=== PATIENT | male | born 1940 | race Caucasian/White ===

== ENCOUNTER 2016-06-18 00:37 | Observation (INO) | payer MEDICARE, OTHER ==
[2016-06-18] VITALS (8 sets, daily range): BP systolic 112–140; BP diastolic 59–78; PULSE 53–90; TEMP 97.6–97.8
[~2016-06-18] VITALS: Ht 182.9 cm; Wt 80.0 kg
[~2016-06-18 00:37] MED LIST: ASPIRIN 32325 MG/TAB PO; CIPRO 500MG TA500 MG PO; LOPRESSOR 225 MG/TAB PO; NITROSTAT0.4 MG/TAB SL; NO HOME MEDICATIONS; PERCOCET 325 MG1 TA2 PO; PLAVIX 75MG TAB75 MG PO; PRINIVIL2.5 MG PO; PYRIDIUM200 M1 PO; TOPROL XL 25MG25 MG PO; ZESTRIL2.5 MG PO; ZOCOR 40MG40 MG PO; ZOVIRAX800 MG PO
[2016-06-18 01:06] LABS: BASO # 0.1 (0.0-0.2); BASO % 0.9 % (0.0-2.0); EOS # 0.5 (0.0-0.7); GRAN # 3.5 (1.4-6.5); GRAN % 51.5 % (42.2-75.2); LYMPH # 2.1 (1.2-3.4); LYMPH % 30.9 % (20.0-51.0); MEAN CELL VOLUME 88 fl (80.0-100.0); MEAN CORPUSCULAR HEMOGLOBIN 31 pg (27.0-31.0); MEAN CORPUSCULAR HGB CONC 36 g/dl (33.0-37.0); MONO # 0.6 (0.1-0.6); MONO % 9.4 % (1.7-9.3); PLATELET COUNT 190 K/mm3 (130-400); RED BLOOD COUNT 3.83 M/mm3 (4.20-5.60); REDCELL DISTRIBUTION WIDTH-CV 12.5 % (11.5-14.5); WHITE BLOOD COUNT 6.7 K/mm3 (4.8-10.8)
[2016-06-18 01:18] LABS: ADJUSTED CALCIUM 9.3 mg/dL (8.4-10.2); ALANINE AMINOTRANSFERASE 17 U/L (21-72); ALBUMIN 3.8 gm/dL (3.5-5.0); ALKALINE PHOSPHATASE 66 U/L (50-136); ANION GAP 11 mmol/L (7-16); BILIRUBIN,TOTAL 0.7 mg/dL (0.0-1.0); BLOOD UREA NITROGEN 15 mg/dL (9-20); CALCIUM 9.1 mg/dL (8.4-10.2); CARBON DIOXIDE 26 mmol/L (22-30); CHLORIDE 103 mmol/L (98-107); CREATININE, serum 1.23 mg/dL (0.66-1.25); GLUCOSE 100 mg/dL (74-106); POTASSIUM 3.9 mmol/L (3.4-5.0); SODIUM 139 mmol/L (137-145); TOTAL PROTEIN 6.6 gm/dL (6.4-8.2)
[2016-06-18] MEDS ORDERED: FLOMAX 0.40.4 MG/CAP PO (01:20)
[2016-06-18] MEDS ORDERED: NORVASC 5MG5 MG/TAB PO (01:21)
[2016-06-18 01:23] LABS: HEMATOCRIT 33.8 % (42.0-52.0)
[2016-06-18] MEDS ORDERED: PROSCAR 5MG5 MG PO (01:23)
[2016-06-18 01:29] LABS: B-TYPE NATRIURETIC PEPTIDE 66 pg/mL (0-450)
[2016-06-18 01:31] LABS: TROPONIN-I < 0.012 ng/mL (0.000-0.034)
[2016-06-18] MEDS ORDERED: LOPRESSOR 225 MG/TAB PO (07:25)
== END 2016-06-18 17:55 | disposition home or self-care (01) ==
LOC: COL.ER 00:37 → PEDS 02:10
PROVIDERS: Emergency Medicine
DX: R07.9 Chest pain, unspecified (principal); I25.10 Atherosclerotic heart disease of native coronary artery without angina pectoris; E78.5 Hyperlipidemia, unspecified; I44.60 Unspecified fascicular block; I08.0 Rheumatic disorders of both mitral and aortic valves; I10 Essential (primary) hypertension; N40.0 Benign prostatic hyperplasia without lower urinary tract symptoms; Z66 Do not resuscitate; Z95.5 Presence of coronary angioplasty implant and graft; Z79.01 Long term (current) use of anticoagulants
CPT/HCPCS: 99239; A9502; G0378; J1650; J2785; J7030

== ENCOUNTER 2016-07-17 16:26 | Emergency (ER) | payer MEDICARE, OTHER ==
[~2016-07-17] VITALS: Ht 182.9 cm; Wt 79.1 kg
[~2016-07-17 16:26] MED LIST changes: +FLOMAX 0.40.4 MG/CAP PO; +NORVASC 5MG5 MG/TAB PO; +PROSCAR 5MG5 MG PO
[2016-07-17 16:34] VITALS: TEMP 98.1
[2016-07-17 17:05] LABS: BASO % 0.5 % (0.0-2.0); EOS # 0.3 (0.0-0.7); EOS % 4.2 % (0-4.0); GRAN # 4.4 (1.4-6.5); GRAN % 57.9 % (42.2-75.2); HEMOGLOBIN 12.2 g/dl (13.5-18.0); LYMPH # 2.2 (1.2-3.4); LYMPH % 28.9 % (20.0-51.0); MEAN CELL VOLUME 89 fl (80.0-100.0); MEAN CORPUSCULAR HEMOGLOBIN 31 pg (27.0-31.0); MEAN CORPUSCULAR HGB CONC 35 g/dl (33.0-37.0); MEAN PLATELET VOLUME 9.3 fl (7.4-10.4); MONO # 0.6 (0.1-0.6); MONO % 8.2 % (1.7-9.3); PLATELET COUNT 200 K/mm3 (130-400); RED BLOOD COUNT 3.89 M/mm3 (4.20-5.60); REDCELL DISTRIBUTION WIDTH-CV 12.5 % (11.5-14.5); WHITE BLOOD COUNT 7.6 K/mm3 (4.8-10.8)
[2016-07-17 17:06] LABS: HEMATOCRIT 34.7 % (42.0-52.0)
[2016-07-17 17:08] LABS: ADJUSTED CALCIUM 8.6 mg/dL (8.4-10.2); ALANINE AMINOTRANSFERASE 20 U/L (21-72); ALKALINE PHOSPHATASE 67 U/L (50-136); ANION GAP 12 mmol/L (7-16); BILIRUBIN,TOTAL 0.8 mg/dL (0.0-1.0); BLOOD UREA NITROGEN 19 mg/dL (9-20); CALCIUM 8.6 mg/dL (8.4-10.2); CARBON DIOXIDE 21 mmol/L (22-30); CHLORIDE 104 mmol/L (98-107); CREATININE, serum 1.25 mg/dL (0.66-1.25); GLUCOSE 91 mg/dL (74-106); LIPASE 98 U/L (23-300); POTASSIUM 4.2 mmol/L (3.4-5.0); SODIUM 137 mmol/L (137-145)
[2016-07-17 17:20] LABS: B-TYPE NATRIURETIC PEPTIDE 124 pg/mL (0-450)
[2016-07-17 17:21] LABS: TROPONIN-I < 0.012 ng/mL (0.000-0.034)
[2016-07-17] MEDS ORDERED: ULTRAM 50MG TAB50 MG PO (17:42)
[2016-07-17 19:30] VITALS: BP 138/73; PULSE 59
== END 2016-07-17 19:49 | disposition home or self-care (01) ==
LOC: COL.ER 16:26
PROVIDERS: Emergency Medicine
DX: R07.9 Chest pain, unspecified (principal); R00.2 Palpitations; I25.10 Atherosclerotic heart disease of native coronary artery without angina pectoris; I10 Essential (primary) hypertension; M54.6 Pain in thoracic spine
CPT/HCPCS: J1170; J2270

== ENCOUNTER 2018-02-12 08:48 | Emergency (ER) | payer MEDICARE, OTHER ==
[~2018-02-12] VITALS: Ht 182.9 cm; Wt 76.8 kg
[~2018-02-12 08:48] MED LIST changes: +ULTRAM 50MG TAB50 MG PO
[2018-02-12 08:53] VITALS: TEMP 97.3
[2018-02-12 09:37] LABS: BASO % 0.6 % (0.0-2.0); EOS # 0.3 (0.0-0.7); EOS % 4.8 % (0-4.0); GRAN # 3.5 (1.4-6.5); GRAN % 55.3 % (42.2-75.2); HEMATOCRIT 36.9 % (42.0-52.0); HEMOGLOBIN 12.8 g/dl (13.5-18.0); LYMPH # 1.8 (1.2-3.4); LYMPH % 28.1 % (20.0-51.0); MEAN CELL VOLUME 92 fl (80.0-100.0); MEAN CORPUSCULAR HEMOGLOBIN 32 pg (27.0-31.0); MEAN CORPUSCULAR HGB CONC 35 g/dl (33.0-37.0); MEAN PLATELET VOLUME 8.9 fl (7.4-10.4); MONO # 0.7 (0.1-0.6); MONO % 10.9 % (1.7-9.3); PLATELET COUNT 207 K/mm3 (130-400); RED BLOOD COUNT 4.03 M/mm3 (4.20-5.60); REDCELL DISTRIBUTION WIDTH-CV 12.8 % (11.5-14.5)
[2018-02-12 09:46] LABS: ALANINE AMINOTRANSFERASE 14 U/L (21-72); ALBUMIN 3.9 gm/dL (3.5-5.0); ALKALINE PHOSPHATASE 60 U/L (50-136); ANION GAP 3 mmol/L (7-16); AST,SGOT 29 U/L (15-37); BILIRUBIN,TOTAL 0.5 mg/dL (0.0-1.0); BLOOD UREA NITROGEN 18 mg/dL (9-20); CALCIUM 8.8 mg/dL (8.4-10.2); CARBON DIOXIDE 28 mmol/L (22-30); CHLORIDE 107 mmol/L (98-107); CREATININE, serum 1.11 mg/dL (0.66-1.25); GLUCOSE 95 mg/dL (74-106); POTASSIUM 4.6 mmol/L (3.4-5.0); SODIUM 139 mmol/L (137-145); TOTAL PROTEIN 6.9 gm/dL (6.4-8.2)
[2018-02-12 09:57] LABS: TROPONIN-I < 0.012 ng/mL (0.000-0.034)
[2018-02-12] MEDS ORDERED: ANTIVERT 25MG25 MG PO ×2 (10:48)
[2018-02-12 10:54] VITALS: BP 168/88; PULSE 55
== END 2018-02-12 11:01 | disposition home or self-care (01) ==
LOC: COL.ER 08:48
PROVIDERS: Nurse Practitioner Primary Care
DX: R42 Dizziness and giddiness (principal); I25.10 Atherosclerotic heart disease of native coronary artery without angina pectoris; K21.9 Gastro-esophageal reflux disease without esophagitis; Z79.82 Long term (current) use of aspirin; Z79.02 Long term (current) use of antithrombotics/antiplatelets; Z95.5 Presence of coronary angioplasty implant and graft; Z86.73 Personal history of transient ischemic attack (TIA), and cerebral infarction without residual deficits

== ENCOUNTER 2019-06-10 15:05 | Emergency (ER) | payer MEDICARE, OTHER ==
[~2019-06-10] VITALS: Ht 180.3 cm; Wt 77.3 kg
[~2019-06-10 15:05] MED LIST changes: +ANTIVERT 25MG25 MG PO
[2019-06-10 15:09] VITALS: TEMP 98.1
[2019-06-10] MEDS ORDERED: NORVASC 5MG5 MG/TAB PO (15:20)
[2019-06-10] MEDS ORDERED: LOPRESSOR 225 MG/TAB PO (15:20)
[2019-06-10] MEDS ORDERED: HCTZ12.5TAB PO (15:20)
[2019-06-10] MEDS ORDERED: FLOMAX 0.40.4 MG/CAP PO (15:21)
[2019-06-10] MEDS ORDERED: LIPITOR 40MG TA40 MG PO (15:21)
[2019-06-10] MEDS ORDERED: PROSCAR 5MG5 MG PO (15:21)
[2019-06-10 15:26] LABS: BASO # 0.1 (0.0-0.2); BASO % 0.8 % (0.0-2.0); EOS # 0.3 (0.0-0.7); EOS % 3.6 % (0-4.0); GRAN # 5.2 (1.4-6.5); GRAN % 57.5 % (42.2-75.2); HEMOGLOBIN 12.7 g/dl (13.5-18.0); LYMPH # 2.7 (1.2-3.4); LYMPH % 29.2 % (20.0-51.0); MEAN CELL VOLUME 92 fl (80.0-100.0); MEAN CORPUSCULAR HEMOGLOBIN 32 pg (27.0-31.0); MEAN CORPUSCULAR HGB CONC 35 g/dl (33.0-37.0); MONO # 0.8 (0.1-0.6); MONO % 8.7 % (1.7-9.3); PLATELET COUNT 264 K/mm3 (130-400); RED BLOOD COUNT 3.92 M/mm3 (4.20-5.60)
[2019-06-10 15:41] LABS: ALANINE AMINOTRANSFERASE 11 U/L (4-49); ALBUMIN 4.4 gm/dL (3.5-5.0); ALKALINE PHOSPHATASE 69 U/L (50-136); ANION GAP 7 mmol/L (7-16); AST,SGOT 33 U/L (15-37); BILIRUBIN,TOTAL 0.7 mg/dL (0.0-1.0); BLOOD UREA NITROGEN 17 mg/dL (9-20); CALCIUM 9.4 mg/dL (8.4-10.2); CARBON DIOXIDE 29 mmol/L (22-30); CHLORIDE 98 mmol/L (98-107); CREATININE, serum 1.22 (0.66-1.25); GLUCOSE 104 mg/dL (74-106); LIPASE 162 U/L (23-300); POTASSIUM 4.1 mmol/L (3.4-5.0); SODIUM 135 mmol/L (137-145); TOTAL PROTEIN 7.7 gm/dL (6.4-8.2)
[2019-06-10 15:50] LABS: C-REACTIVE PROTEIN < 0.5 mg/dL (0.0-0.9); TROPONIN-I < 0.012 ng/mL (0.000-0.035)
[2019-06-10 18:17] VITALS: BP 151/89; PULSE 68
== END 2019-06-10 18:17 | disposition home or self-care (01) ==
LOC: COL.ER 15:05
PROVIDERS: Emergency Medicine
DX: I44.7 Left bundle-branch block, unspecified (principal); I10 Essential (primary) hypertension; Z95.5 Presence of coronary angioplasty implant and graft; Z79.02 Long term (current) use of antithrombotics/antiplatelets; Z79.82 Long term (current) use of aspirin

== ENCOUNTER 2021-10-10 02:39 | Emergency (ER) | payer MEDICARE, OTHER ==
[~2021-10-10] VITALS: Ht 182.9 cm; Wt 77.3 kg
[~2021-10-10 02:39] MED LIST changes: +HCTZ12.5TAB PO; +LIPITOR 40MG TA40 MG PO
[2021-10-10 03:01] VITALS: TEMP 97.8
[2021-10-10 03:10] LABS: COLLECTION METHOD CLEAN CATCH
[2021-10-10 03:12] LABS: BASO # 0.1 K/mm3 (0.0-0.2); BASO % 0.5 % (0.0-2.0); EOS # 0.3 K/mm3 (0.0-0.7); GRAN # 5.7 K/mm3 (1.4-6.5); GRAN % 61.6 % (42.2-75.2); HEMOGLOBIN 12.2 g/dl (13.5-18.0); LYMPH # 2.2 K/mm3 (1.2-3.4); LYMPH % 23.9 % (20.0-51.0); MEAN CELL VOLUME 87 fl (80.0-100.0); MEAN CORPUSCULAR HEMOGLOBIN 32 pg (27-31); MEAN CORPUSCULAR HGB CONC 37 g/dl (33.0-37.0); MEAN PLATELET VOLUME 8.6 fl (7.4-10.4); MONO % 10.6 % (1.7-9.3); PLATELET COUNT 248 K/mm3 (130-400); RED BLOOD COUNT 3.83 M/mm3 (4.20-5.60); REDCELL DISTRIBUTION WIDTH-CV 12.4 % (11.5-14.5)
[2021-10-10 03:18] LABS: HEMATOCRIT 33.4 % (42.0-52.0)
[2021-10-10 03:21] LABS: PH 8.5 (5.0-8.5); URINE APPEARANCE Cloudy (CLEAR/HAZY); URINE COLOR Red (YELLOW); URINE GLUCOSE TRACE (NEGATIVE); URINE KETONE 1+ (NEGATIVE); URINE PROTEIN(semi-quant) 3+ (NEGATIVE)
[2021-10-10 03:22] LABS: URINE BLOOD 3+ (NEGATIVE); URINE NITRATE Positive (NEGATIVE)
[2021-10-10 03:31] LABS: ALBUMIN 3.7 gm/dL (3.4-4.8); CALCIUM 8.9 mg/dL (8.4-10.2); CREATININE, serum 1.27 mg/dL (0.72-1.25); POTASSIUM 3.7 mmol/L (3.5-4.5); TOTAL PROTEIN 6.7 gm/dL (6.2-8.1)
[2021-10-10 03:34] LABS: SQUAMOUS EPITHELIAL None Seen /hpf (0-10); URINE BACTERIA None Seen /hpf (NONE SEEN); URINE RBC >50 /hpf (0-2)
[2021-10-10 03:39] LABS: BILIRUBIN,TOTAL 0.6 mg/dL (0.2-1.2)
[2021-10-10] MEDS ORDERED: BACTRIM DS 8001 TAB PO (05:27)
[2021-10-10 05:40] VITALS: BP 144/96; PULSE 65
== END 2021-10-10 05:41 | disposition home or self-care (01) ==
LOC: COL.ER 02:39
PROVIDERS: Physician Assistant
DX: N30.91 Cystitis, unspecified with hematuria (principal)
CPT/HCPCS: J0696; Q9967

== ENCOUNTER 2022-03-16 19:53 | Emergency (ER) | payer MEDICARE, OTHER ==
[~2022-03-16 19:53] MED LIST changes: +BACTRIM DS 8001 TAB PO
[2022-03-16 20:19] VITALS: TEMP 98.1
[2022-03-16] MEDS ORDERED: FLEXERIL 1010 MG/TAB PO ×2 (20:42)
[2022-03-16 21:23] LABS: BASO % 0.6 % (0.0-2.0); EOS # 0.3 K/mm3 (0.0-0.7); EOS % 4.9 % (0.0-4.0); GRAN # 4.5 K/mm3 (1.4-6.5); GRAN % 65.2 % (42.2-75.2); HEMOGLOBIN 11.2 g/dl (13.5-18.0); LYMPH # 1.1 K/mm3 (1.2-3.4); LYMPH % 16.1 % (20.0-51.0); MEAN CELL VOLUME 88 fl (80.0-100.0); MEAN CORPUSCULAR HEMOGLOBIN 32 pg (27-31); MEAN CORPUSCULAR HGB CONC 36 g/dl (33.0-37.0); MEAN PLATELET VOLUME 8.8 fl (7.4-10.4); MONO # 0.9 K/mm3 (0.1-0.6); MONO % 12.8 % (1.7-9.3); PLATELET COUNT 244 K/mm3 (130-400); RED BLOOD COUNT 3.53 M/mm3 (4.20-5.60); REDCELL DISTRIBUTION WIDTH-CV 12.7 % (11.5-14.5)
[2022-03-16 21:25] LABS: HEMATOCRIT 31.2 % (42.0-52.0)
[2022-03-16 21:39] LABS: ALBUMIN 3.4 gm/dL (3.4-4.8); BILIRUBIN,TOTAL 0.7 mg/dL (0.2-1.2); CALCIUM 8.7 mg/dL (8.4-10.2); CREATININE, serum 1.22 mg/dL (0.72-1.25); POTASSIUM 3.3 mmol/L (3.5-4.5); TOTAL PROTEIN 6.6 gm/dL (6.2-8.1)
[2022-03-16 21:45] LABS: TROPONIN-I 0.01 ng/mL (0.00-0.033)
[2022-03-16 22:14] VITALS: BP 131/68; PULSE 71
== END 2022-03-16 22:14 | disposition home or self-care (01) ==
LOC: COL.ER 19:53
PROVIDERS: Personal Emergency Response Attendant
DX: J40 Bronchitis, not specified as acute or chronic (principal)

== ENCOUNTER 2022-12-09 08:35 | Emergency (ER) | payer MEDICARE, OTHER ==
[~2022-12-09] VITALS: Ht 182.9 cm; Wt 77.3 kg
[~2022-12-09 08:35] MED LIST changes: +FLEXERIL 1010 MG/TAB PO
[2022-12-09 08:43] VITALS: TEMP 98
[2022-12-09 09:56] LABS: BASO % 0.4 % (0.0-2.0); EOS # 0.1 K/mm3 (0.0-0.7); GRAN # 5.9 K/mm3 (1.4-6.5); GRAN % 71.4 % (42.2-75.2); LYMPH # 1.3 K/mm3 (1.2-3.4); LYMPH % 15.9 % (20.0-51.0); MEAN CELL VOLUME 93 fl (80.0-100.0); MEAN CORPUSCULAR HEMOGLOBIN 33 pg (27-31); MEAN CORPUSCULAR HGB CONC 35 g/dl (33.0-37.0); MEAN PLATELET VOLUME 8.6 fl (7.4-10.4); MONO # 0.9 K/mm3 (0.1-0.6); MONO % 10.7 % (1.7-9.3); PLATELET COUNT 236 K/mm3 (130-400); RED BLOOD COUNT 3.98 M/mm3 (4.20-5.60)
[2022-12-09 09:58] LABS: HEMATOCRIT 36.9 % (42.0-52.0)
[2022-12-09 10:13] LABS: ALBUMIN 3.7 gm/dL (3.4-4.8); BILIRUBIN,TOTAL 0.6 mg/dL (0.2-1.2); CALCIUM 9.2 mg/dL (8.4-10.2); CREATININE, serum 1.17 mg/dL (0.72-1.25); TOTAL PROTEIN 6.8 gm/dL (6.2-8.1)
[2022-12-09] MEDS ORDERED: ZOFRAN ODT4 MG PO (10:37)
[2022-12-09 10:52] VITALS: BP 161/84; PULSE 73
== END 2022-12-09 10:52 | disposition home or self-care (01) ==
LOC: COL.ER 08:35
PROVIDERS: Emergency Medicine
DX: E87.1 Hypo-osmolality and hyponatremia (principal)
CPT/HCPCS: J2405; J7030

== ENCOUNTER → 2023-03-25 | Outpatient (CLI) | payer MEDICARE, OTHER ==
[~2023-03-25] MED LIST changes: +ZOFRAN ODT4 MG PO
== END ==
LOC: COL.RAD 08:14
DX: N26.1 Atrophy of kidney (terminal) (principal)